=== PATIENT | female | born 1950 | race Caucasian/White ===

== ENCOUNTER → 2016-09-25 | Outpatient (CLI) | payer BC ==
--- NOTE | 2016-09-25 15:09 | RADRPT ---
PROCEDURE: Right knee radiographs. CLINICAL INDICATION: Right knee pain. TECHNIQUE: Four views. Weight bearing. Frontal, lateral, oblique, and patellar view. COMPARISON: No prior studies are available for comparison. FINDINGS: There is no fracture or dislocation. The soft tissues are normal. There are degenerative changes with osteophytes arising from all 3 joint compartment margins. There is lateral joint compartment narrowing and subarticular sclerosis. There is no lytic or blastic lesion. There is no radiopaque foreign body. IMPRESSION: 1. Moderate degenerative changes of the right knee. 2. No acute abnormality. RPTAT: QQ .Sergei Garcia MD, MD Date Time Electronically viewed and signed by .Sergei Garcia MD, on 09/25/2016 15:09 .R/
== END | disposition home or self-care (01) ==
LOC: HKI 11:10
PROVIDERS: ATTEND Orthopaedic Surgery
DX: M25.561 Pain in right knee (principal); M17.11 Unilateral primary osteoarthritis, right knee
CPT/HCPCS: 20610; 73564; G0463; J1030

== ENCOUNTER → 2016-12-26 | Outpatient (CLI) | payer BC ==
[~2016-12-26] MED LIST: IOHEXOL 100 ML ONE; SOD CHLORIDE 0.9% 100 ML ONE
--- NOTE | 2016-12-26 17:14 | RADRPT ---
PROCEDURE: CTA Neck. CLINICAL INDICATION: CERVICAL VASCULAR MALFORMATION TECHNIQUE: Continues axial CT images were obtained through the neck with the use of 100 cc of Omni paque 350 nonionic intravenous contrast material. Coronal and sagittal as well as maximal intensity projection reformations were obtained. 3-D re-formations were performed. The images were reviewed o n a PACS workstation. The calculated radiation dose measures 654 mGy centimeters. The CTDI measures 21 mGy COMPARISON: No prior studies are available for comparison. FINDINGS: There is prominent dilation of the left-sided epidural venous plexus, extending from the left C2 lev el through the C4-C5 level. The dilated and early enhancing epidural venous plexus measures up to 1 .1 x 1.9 cm in the axial plane, with associated mass effect on the left side of the spinal canal. Th ere is prominence of vessels seen in the C1-C2 through C5-C6 neural foramina. There is a possible fe eding artery arising posteriorly from the left vertebral artery on image 2 - 113, at the C1-C2 level The aortic arch demonstrates moderate calcification. The origins of the great vessels are intact. The brachiocephalic artery appears unremarkable. The right common carotid artery appears normal, wi thout stenosis or occlusion. There is mild partially calcified plaque at the right carotid bifurcat ion, without significant vessel narrowing. The right internal carotid artery flows through normally to the intracranial segment. The left common carotid artery appears normal, without stenosis or occlusion. The left carotid bulb demonstrates minimal calcification, without significant vessel narrowing. The left internal caroti d artery flows through normally to the intracranial segment. The vertebral arteries are patent bilaterally. There is tortuosity of the proximal left vertebral ar kiana. There is a right thyroid nodule measuring up to 2.0 x 1.3 cm. There are nodular structures within t he left thyroid bed region, measuring up to 1.6 x 0.9 cm. There are cervical spine degenerative changes, most prominent at C5-C6 and C6-C7. There is debris o r soft tissue thickening in the left external auditory canal. IMPRESSION: 1. Prominent dilation of the left-sided epidural venous plexus from C2 through C4-C5, with prominen ce of adjacent draining veins. There is associated mass effect on the left-sided thecal sac. 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 There is a possible feeding artery arising post eriorly from the left vertebral artery at the C1-C2 level, although this is uncertain, and additiona l feeding arteries may be present as well. Catheter angiogram is suggested for further evaluation. 2. Mild plaque at the right carotid bifurcation and minimal plaque at the left carotid bifurcation, without significant vessel narrowing. 3. Normal patency of the bilateral vertebral arteries. RPTAT: DD .Volodymyr Heller MD, MD Date Time Electronically viewed and signed by .Volodymyr Heller MD, MD on 12/26/2016 17:13 .T/
== END | disposition home or self-care (01) ==
LOC: C/S 12:21
PROVIDERS: ATTEND Neurological Surgery
DX: M53.82 Other specified dorsopathies, cervical region (principal)
CPT/HCPCS: 70498; Q9967